=== PATIENT | female | born 1955 | race Caucasian/White ===

== ENCOUNTER → 2020-02-03 | Outpatient (CLI) | payer OTHER | LOC: M ONCR 13:09 | PROVIDERS: ATTEND General Practice | DX: C50.919 Malignant neoplasm of unspecified site of unspecified female breast (principal) ==

== ENCOUNTER 2020-02-13 10:03 | Outpatient (RCR) | payer OTHER | END 2020-02-23 | LOC: M ONCR 10:03 | PROVIDERS: ATTEND General Practice | DX: C50.411 Malignant neoplasm of upper-outer quadrant of right female breast (principal) ==

== ENCOUNTER 2020-03-17 14:42 | Outpatient (RCR) | payer OTHER ==
--- NOTE | 2020-04-13 10:37 | RADONC ---
RADIATION ONCOLOGY TREATMENT SUMMARY DATE: 03/17/2020 Chart #[id number] DIAGNOSIS: 1. Right breast cancer. Stage IA, T1a, N0, M0, Grade 2, ER positive, PRx positive, HER-2 negative. ECOG performance status 0. TREATMENT SUMMARY: Ms. Whitman is a very pleasant 64-year-old white female with a diagnosis of a right sided breast carcinoma who presented to us for consideration of postoperative radiation therapy for conservative breast management. We treated the patient to the right breast for a total dose of 4005 cGy delivered in 15 fractions of 267 cGy each. The patients right breast was treated on a linear accelerator using a 6 MV photon beam via 3-D conformal technique and medial and lateral tangential burdick. Ms. Whitman tolerated her treatments quite well and was able to complete therapy as prescribed without interruption. I have scheduled the patient to see us again in this department in six months for further follow-up. She will also continue to be followed by her other physicians as well. Thank you for allowing us to participate in the care of this very pleasant woman. DAMIÁN
== END 2020-03-24 ==
LOC: M ONCR 14:42
PROVIDERS: ATTEND General Practice
DX: C50.411 Malignant neoplasm of upper-outer quadrant of right female breast (principal)

== ENCOUNTER → 2020-04-07 | Outpatient (REF) | payer OTHER | LOC: M SFHCPLAZ 16:54 | PROVIDERS: ATTEND Physician Assistant | DX: C44.612 Basal cell carcinoma of skin of right upper limb, including shoulder (principal) ==

== ENCOUNTER → 2020-09-15 | Outpatient (CLI) | payer OTHER ==
[~2020-09-15] MED LIST: CALC-190 PO; FOLTTAB9 PO; TAMO20TA8 PO
--- NOTE | 2020-09-15 15:19 | RADONC ---
Radiation Oncology Hx/FUP Radiation Oncology Hx/FUP Date of Service: Sep 15, 2020 Pt Identifier Geovanna Whitman is a 65 year old female seen for a followup visit today at the department of radiation oncology for a history of both right and left breast cancers. Most recently she had a screening detected right breast cancer pT1bN0(sn)M0 ER/PA+ HER2- Grade 2 IDC s/p lumpectomy and SLNB on 01/12/[address] Hurt. She completed adjuvant hypofractionated partial breast RT 40 Gy in 15 fractions on 03/17/21. She continues on tamoxifen and has her surgical, medical oncology and mammography in [place]. Diagnosis/Treatment History Oncologic History History of left breast cancer stage I ER/PA+ HER2- s/p lumpectomy SLNB, adjuvant CT chemotherapy and adjuvant RT 48.6 Gy in 27 fractions to the left breast followed by an additional 16 Gy in 8 fractions tumor bed boost completed 01/21/08. This was followed by 10 years of tamoxifen completed 2018. Right breast cancer: On mammogram from 11/17/19 a right lateral breast abnormality was noted This was biopsied on 12/05/19 and returned IDC grade 2 ER/PA+ HER2- She underwent lumpectomy and SLNB on 01/12/[address] Hurt, showing pT1bN0(sn)M0 margins negative She completed adjuvant hypofractionated partial breast RT 40 Gy in 15 fractions to the tumor bed on 03/17/20 She continues on tamoxifen Survivorship: Test Due Next Last result Notes TSH, T4* 6m post-tx, then q1y N/A Carotid US* q10 y post-tx N/A Smoking cessation Assess annually if applicable N/A Screening CT chest q1y if eligible per USPSTF N/A Mammograms Min q1y, if breast conservation 10/2020 N/A CBC,CMP, Lipids q1y 2021 DEXA q2y if on AI N/A On Tamoxifen Interval History Geovanna feels well she has no residual skin complaints save mild hyperpigmentation around the treated field. She has a mammogram in the next week at [facility]. She will see her surgeon next month as well. She notes that a few weeks back she had 2 days where she had a sharp pain at the incision site on the lateral right breast. This resolved spontaneously however. Appetite is good weight stable. She is having some hot flashes from the tamoxifen but these are not too bothersome. Current Therapy Surveillance Stage Right breast cancer stage IA pT1bN0(sn)M0 ER/PA+ HER2- Grade 2 Social History: Non-smoker Non-drinker Allergies / Meds Home Meds Reported Medications Calcium Carbonate/Vitamin D3 (Calcium 1,000 + D3 Caplet) 1 Each Tablet, 1 TAB PO, TAB 09/15/20 B12/Levomefolate Calcium/B-6 (Foltx Tablet) 1 Each Tablet, 1 TAB PO DAILY for 30 Days, #30 TAB 09/15/20 Tamoxifen Citrate (Tamoxifen Citrate) 20 Mg Tablet, 20 MG PO DAILY for 30 Days, #30 TAB 09/15/20 Review of Systems Review of Systems Constitutional: Denies: Chills, Fever, Fatigue, Weight Loss Eyes: Denies: Pain HEENT: Denies: Head Aches Skin: Denies: Rash Breast: Denies: New Breast Lumps / Masses, Nipple Retraction, Nipple Discharge, Breast Skin Changes, Breast Pain or Tenderness, Other Breast Complaints Pulmonary: Denies: Dyspnea, Cough Cardiovascular: Denies: Chest Pain Gastrointestinal: Denies: Nausea, Abdominal Pain Hematologic: Denies: Bruising Endocrine: Denies: Cold Intolerance Musculoskeletal: Denies: Neck pain, Back pain Neurological: Denies: Weakness, Numbness Psych: Reports: Mood Normal Physical Examination Vital Signs Wt 149 lbs T 97.9 P 83 RR 18 BP 125/79 O2 97% Pain 0 Fatigue 0 General Exam: Positive: Alert, Cooperative; Negative: No Acute Distress Eye Exam: Positive: PERRLA, EOMI ENT EXAM: Positive: Atraumatic Neck Exam: Positive: Supple; Negative: Lymphadenopathy Chest Exam: Positive: Normal air movement Heart Exam: Positive: Rate Normal Breast Exam: Positive: Symmetric Bilaterally (Mild ptosis), Skin Changes (Mild telangiectasias and hyperpigmentation noted on the lateral right breast. ), Other Breast Findings (Palpable surgical site right lateral breast. No significant fibrosis BL. No masses in the axillae BL. ); Negative: Lumps or Masses, Nipple Retraction, Nipple Discharge Abdomen Exam: Positive: Soft Extremity Exam: Negative: Edema Skin Exam: Positive: Nl turgor and temperature Neuro Exam: Positive: Normal Gait, Normal Speech, Cranial Nerves 3-12 NL Psych Exam: Positive: Mental status NL Diagnostic and Laboratory Diagnostic Review Radiologic images, relevant labs and pathology reports were personally reviewed and discussed with Ms. Whitman. Assessment and Plan Impression Assessment Ms. Whitman is a 65 year old female with a history of both right and left breast cancers. Most recently she had a screening detected right breast cancer pT1bN0(sn)M0 ER/PA+ HER2- Grade 2 IDC s/p lumpectomy and SLNB on 01/12/[address] Hurt. She completed adjuvant hypofractionated partial breast RT 40 Gy in 15 fractions on 03/17/21. She continues on tamoxifen and has her surgical, medical oncology and mammography in [place]. She is doing well overall. There is no evidence of recurrent or de andrea disease on her exam. She has some mild late skin changes associated with the recent course of RT which are cosmetic in nature only. She is doing well with adjuvant tamoxifen for the most part. She has follow up in place in the coming months with her [place] providers. In effort to split follow up I will see her again in 1 year. Performance Status ECOG 0 Plan Follow up in 12 months Ms. Whitman was encouraged to call with questions or concerns in the interim period. Billing Statement Total time of [22] minutes was spent preparing for the visit [1], obtaining HPI [3], examining the patient [3], reviewing diagnostic tests [2], discussing man agement options [4], coordinating care [1], and writing this note [8]. DAQUAN BENITEZ MD Sep 15, 2020 15:19
== END ==
LOC: M ONCR 14:05
PROVIDERS: ATTEND General Practice
DX: C50.411 Malignant neoplasm of upper-outer quadrant of right female breast (principal)

== ENCOUNTER → 2021-09-14 | Outpatient (CLI) | payer MEDICARE, OTHER | LOC: M ONCR 12:49 | PROVIDERS: ATTEND General Practice | DX: C50.411 Malignant neoplasm of upper-outer quadrant of right female breast (principal); I78.1 Nevus, non-neoplastic; Z85.3 Personal history of malignant neoplasm of breast ==

== ENCOUNTER → 2022-09-14 | Outpatient (CLI) | payer MEDICARE, OTHER | LOC: M ONCR 12:49 | PROVIDERS: ATTEND General Practice | DX: C50.411 Malignant neoplasm of upper-outer quadrant of right female breast (principal); Z79.810 Long term (current) use of selective estrogen receptor modulators (SERMs); Z92.21 Personal history of antineoplastic chemotherapy; Z92.3 Personal history of irradiation ==

== ENCOUNTER → 2023-04-23 | Outpatient (REF) | payer MEDICARE, OTHER | LOC: M SFHCDERM 14:15 | PROVIDERS: ATTEND Physician Assistant | DX: D04.5 Carcinoma in situ of skin of trunk (principal) ==

== ENCOUNTER → 2023-10-10 | Outpatient (CLI) | payer MEDICARE, OTHER | LOC: M ONCR 09:55 | PROVIDERS: ATTEND General Practice | DX: Z08 Encounter for follow-up examination after completed treatment for malignant neoplasm (principal); Z85.3 Personal history of malignant neoplasm of breast; Z71.2 Person consulting for explanation of examination or test findings; Z79.810 Long term (current) use of selective estrogen receptor modulators (SERMs); Z92.21 Personal history of antineoplastic chemotherapy; Z92.3 Personal history of irradiation ==

== ENCOUNTER → 2023-12-13 | Outpatient (REF) | payer MEDICARE, OTHER | LOC: M SFHCDERM 17:22 | PROVIDERS: ATTEND Physician Assistant | DX: C44.519 Basal cell carcinoma of skin of other part of trunk (principal) ==

== ENCOUNTER → 2024-10-09 | Outpatient (CLI) | payer MEDICARE, OTHER | LOC: M ONCR 09:51 | PROVIDERS: ATTEND General Practice | DX: Z08 Encounter for follow-up examination after completed treatment for malignant neoplasm (principal); Z85.3 Personal history of malignant neoplasm of breast; Z98.890 Other specified postprocedural states; Z92.3 Personal history of irradiation; Z79.810 Long term (current) use of selective estrogen receptor modulators (SERMs); Z92.21 Personal history of antineoplastic chemotherapy ==